=== PATIENT | female | born 1975 | race Caucasian/White ===

== ENCOUNTER 2022-06-17 16:47 | Emergency (ER) | payer OTHER, SELFPAY ==
[2022-06-17 17:13] VITALS: O2SAT 96
--- NOTE | 2022-06-17 17:24 | ERPHSYRPT ---
- History of Present Illness Time Seen by Provider: 06/17/22 16:55 Source: patient Exam Limitations: no limitations Patient Subjective Stated Complaint: C/O left earache over the past several days that is now also causing left sided jaw pain Triage Nursing Assessment: Patient ambulated back to ED. She is alert and oriented. NO SOB. Ear canal red with no drainage noted. Hearing normally. No cavities noted in left side of mouth. Physician History: 46 years old female presented in ER with chief complaint of left earache for the last 3 to 4 days with progressive worsening. Sharp shooting moderate intensity with radiating to left upper jaw. Aggravated with movements of jaw, tried [id number] medication for pain with no significant relief. Denies any discharge. No fever or chills reported. Timing/Duration: gradual onset, days (4) Severity: moderate ENT Location: ear (L) Prearrival Treatment: over the counter meds Associated Symptoms: ear pain (L), facial pain/swelling Allergies/Adverse Reactions: No Known Drug Allergies Allergy (Verified 06/17/22 16:59) Hx Tetanus, Diphtheria Vaccination/Date Given: Yes Hx Influenza Vaccination/Date Given: No Hx Pneumococcal Vaccination/Date Given: No Immunizations Up to Date: Yes Travel Risk - International Travel Have you traveled outside of the country in past 3 weeks: No - Coronavirus Screening Are you exhibiting any of the following symptoms?: No Close contact with a COVID-19 positive Pt in past 14-21 Days: No - Vaccine Status Have you recieved a Covid-19 vaccination: Yes [employer] Adf Consultant: Moderna - Vaccination Dates Date of 2cond Vaccination (if applicable): 2020 - Review of Systems Constitutional: No Symptoms Eyes: No Symptoms Ears, Nose, & Throat: Ear Pain, No Ear Discharge Respiratory: No Symptoms Cardiac: No Symptoms Genitourinary Symptoms: No Symptoms Musculoskeletal: No Symptoms Neurological: No Symptoms Endocrine: No Symptoms Hematologic/Lymphatic: No Symptoms Immunological/Allergic: No Symptoms - Past Medical History Pertinent Past Medical History: Yes Neurological History: No Pertinent History ENT History: No Pertinent History Cardiac History: No Pertinent History Respiratory History: No Pertinent History Endocrine Medical History: No Pertinent History Musculoskeletal History: No Pertinent History, Other GI Medical History: No Pertinent History History: No Pertinent History Psycho-Social History: Anxiety, Depression Female Reproductive Disorders: No Pertinent History, Other - Past Surgical History Past Surgical History: Yes Neuro Surgical History: No Pertinent History Cardiac: No Pertinent History Respiratory: No Pertinent History Gastrointestinal: No Pertinent History Genitourinary: No Pertinent History Musculoskeletal: No Pertinent History Female Surgical History: Section - Social History Smoking Status: Current every day smoker How long have you smoked: 30 Exposure to second hand smoke: Yes Drug Use: none Patient Lives Alone: No - Female History Hx Now: No - Nursing Vital Signs Nursing Vital Signs: Initial Vital Signs Temperature 97.5 F 06/17/22 17:00 Pulse Rate 116 H 06/17/22 17:00 Respiratory Rate 17 06/17/22 17:00 Blood Pressure 148/76 06/17/22 17:00 O2 Sat by Pulse Oximetry 96 06/17/22 17:00 Pain Scale Pain Intensity 8 - Physical Exam General Appearance: no apparent distress, alert Eye Exam: bilateral eye: normal inspection, PERRL, EOMI Ear Exam: right ear: TM normal, left ear: TM dull, bilateral ear: auricle normal, canal normal Nasal Exam: normal inspection Throat Exam: normal, pharynx normal, No dental tenderness Neck Exam: normal inspection, non-tender, supple, full range of motion, trachea midline, lymphadenopathy (L) Cardiovascular/Respiratory Exam: normal breath sounds, regular rate/rhythm Neurologic Exam: alert, oriented x 3, cooperative, adult education manager II-XII nml as tested Skin Exam: normal color SpO2 Interpretation: normal SpO2: 96 O2 Delivery: Room Air - Progress Progress: unchanged Progress Note: 06/17/22 17:23 Has otitis media, started on Augmentin, outpatient follow-up recommended. We wi ll also give Flonase to help with eustachian tube opening. Counseled pt/family regarding: diagnosis, need for follow-up - Departure Departure Disposition: Home Clinical Impression: Acute otitis media Condition: Stable Critical Care Time: No Referrals: [facility] [Primary Care Provider] - Follow Up with PCP/3 days Additional Instructions: Take Tylenol/ibuprofen as needed for pain. Follow-up with primary care for reevaluation. Return to ER for any worsening. Prescriptions: Ibuprofen 600 mg PO Q6HPRN PRN 10 Days #20 tablet PRN Reason: Pain Amox Tr/Potass Clav. 875 mg [Augmentin 875-125 Tablet] 875 mg PO BID #14 tablet Fluticasone Propionate [Flonase NASAL] 16 gm NS DAILY #1
[2022-06-17 17:35] VITALS: BP 132/76; PULSE 100
== END 2022-06-17 17:34 | disposition home or self-care (01) ==
LOC: ED 16:47
DX: H66.92 Otitis media, unspecified, left ear (principal); H92.02 Otalgia, left ear; Z72.0 Tobacco use
CPT/HCPCS: 99281

== ENCOUNTER 2022-06-25 17:51 | Emergency (ER) | payer OTHER ==
[2022-06-25 18:42] VITALS: BP 140/86; PULSE 98
[2022-06-25] MEDS ORDERED: Rocephin 1000 MG INJ IM ONE (18:42)
--- NOTE | 2022-06-25 18:49 | ERPHSYRPT ---
- History of Present Illness Time Seen by Provider: 06/25/22 18:44 Source: patient Exam Limitations: no limitations Patient Subjective Stated Complaint: C/O left ear pain for 2 weeks Triage Nursing Assessment: Patient showing s/s of pain; grimacing, tearful, can't sit still. Left ear is tender when lobe is moved/pulled on. Inner ear is red/inflammed. Hearing is not noted to be affected at this time. Physician History: L ear pain x 2 weeks. no help from amoxicillin. Increased pain at night when trying to sleep. Timing/Duration: gradual onset, weeks (2) Severity: severe ENT Location: ear (L) Prearrival Treatment: prescription meds Modifying Factors: Improves With: lying down Associated Symptoms: ear pain (L), change in hearing, facial pain/swelling, jaw pain, nasal congestion/drainage Allergies/Adverse Reactions: No Known Drug Allergies Allergy (Verified 06/25/22 18:34) Hx Tetanus, Diphtheria Vaccination/Date Given: Yes Hx Influenza Vaccination/Date Given: No Hx Pneumococcal Vaccination/Date Given: No Immunizations Up to Date: Yes Travel Risk - International Travel Have you traveled outside of the country in past 3 weeks: No - Coronavirus Screening Are you exhibiting any of the following symptoms?: No Close contact with a COVID-19 positive Pt in past 14-21 Days: No - Vaccine Status Have you recieved a Covid-19 vaccination: Yes Manager Payment: Moderna - Vaccination Dates Date of 2cond Vaccination (if applicable): 2020 - Review of Systems Constitutional: No Fever, No Chills Eyes: No Symptoms Ears, Nose, & Throat: Ear Pain Respiratory: No Cough, No Dyspnea Cardiac: No Chest Pain, No Edema, No Syncope Abdominal/Gastrointestinal: No Abdominal Pain, No Nausea, No Vomiting, No Diarrhea Genitourinary Symptoms: No Dysuria Musculoskeletal: No Back Pain, No Neck Pain Skin: No Rash Neurological: No Dizziness, No Focal Weakness, No Sensory Changes Psychological: No Symptoms Endocrine: No Symptoms All Other Systems: Reviewed and Negative - Past Medical History Pertinent Past Medical History: Yes Neurological History: No Pertinent History ENT History: No Pertinent History Cardiac History: No Pertinent History Respiratory History: No Pertinent History Endocrine Medical History: No Pertinent History Musculoskeletal History: No Pertinent History, Other GI Medical History: No Pertinent History History: No Pertinent History Psycho-Social History: Anxiety, Depression Female Reproductive Disorders: No Pertinent History, Other Other Medical History: Ear infections - Past Surgical History Past Surgical History: Yes Neuro Surgical History: No Pertinent History Cardiac: No Pertinent History Respiratory: No Pertinent History Gastrointestinal: No Pertinent History Genitourinary: No Pertinent History Musculoskeletal: No Pertinent History Female Surgical History: Section - Social History Smoking Status: Current every day smoker How long have you smoked: 30 Exposure to second hand smoke: Yes Drug Use: none Patient Lives Alone: No - Female History Hx Now: No - Nursing Vital Signs Nursing Vital Signs: Initial Vital Signs Pulse Rate 98 H 06/25/22 18:36 Respiratory Rate 23 06/25/22 18:36 Blood Pressure 140/86 06/25/22 18:36 Pain Scale Pain Intensity 10 - Physical Exam General Appearance: mild distress, alert Eye Exam: bilateral eye: PERRL, EOMI Ear Exam: left ear: erythema, swelling, tenderness, TM red, other (canal swollen) Nasal Exam: normal inspection Throat Exam: pharynx normal, moist mucus membranes, No tonsillar exudate Neck Exam: supple Cardiovascular/Respiratory Exam: normal breath sounds, regular rate/rhythm Abdominal Exam: non-tender, soft Neurologic Exam: alert, oriented x 3, sensation nml, No motor deficits Skin Exam: normal color, warm, dry - Course Nursing assessment & vital signs reviewed: Yes - Progress Progress: unchanged - Departure Departure Disposition: Home Clinical Impression: Left otitis externa Condition: Stable Critical Care Time: No Referrals: [facility] [Primary Care Provider] - Follow up/PCP as directed Instructions: Outer Ear Infection (DC) Prescriptions: Cefdinir 300 mg PO TID 10 Days #30 cap Dru/Baci/Poly/Hc Ear Susp [Cortisporin Ear Drops 10 ml Suspension] 3 drops OT TID 3 Days #10 ml Diclofenac Sodium 50 mg [Voltaren 50 mg] 50 mg PO TID 5 Days #15 tablet
[2022-06-25] MEDS ORDERED: XYLOCAINE 1% HCL 20 ML MDV ONE (18:56)
[2022-06-25] MEDS ORDERED: Rocephin 1000 MG INJ ONE (18:56)
== END 2022-06-25 19:10 | disposition home or self-care (01) ==
LOC: ED 17:51
DX: H60.92 Unspecified otitis externa, left ear (principal); H92.02 Otalgia, left ear; Z72.0 Tobacco use
CPT/HCPCS: 96372; 99282; J0696

== ENCOUNTER 2024-08-07 15:59 | Emergency (ER) | payer MEDICAID, OTHER ==
[2024-08-07 16:18] VITALS: RESP 18; TEMP 97.6
[2024-08-07] MEDS: Decadron 4 MG PO STA (16:57)
--- NOTE | 2024-08-07 17:04 | ERPHSYRPT ---
- History of Present Illness Time Seen by Provider: 08/07/24 16:05 Source: patient Exam Limitations: no limitations Patient Subjective Stated Complaint: pt reports a spider bit her overnight and now has severe pain and a bite on her left forearm. pt states she also lanced the wound herself today and it has some drainage. Triage Nursing Assessment: pt is aox3, cursing profusely upon exam, pt continuously interupting this nurse during exam, pt is not able to remain upright on cot, nurse not able to measure blood pressure due to pt movement, pt is afebrile, resps easy and non labored, cap refill < 3 seconds, radial pulses strong and equal, pt has apparent abscess on her left wrist/forearm, wound is red and swelling is mild, minimal drainage noted at this time. Physician History: 48 years old updated with tetanus presented in the ER with possible spider bite left forearm last night. Patient reports burning sensation around and she tried to squeeze it to take the poison out. No fever or chills reported. Reports swelling around. Small area of of eroded skin with minimal erythema around. No pus, good granulation tissue. Minimal increased temperature. Minimal tenderness around. I believe patient has allergic reaction to insect bite and she reported the skin in an effort to take out the poison. It does not seem infected. I have given a dose of oral steroid and recommended topical steroid to go home. Discussed signs symptoms of worsening needing return to ER which she seems understanding. Stable for discharge. Allergies/Adverse Reactions: No Known Drug Allergies Allergy (Verified 08/07/24 16:18) Home Medications: Pregabalin 50 mg [Lyrica 50MG] 50 mg PO TID 08/07/24 [History] Hx Tetanus, Diphtheria Vaccination/Date Given: Yes Hx Influenza Vaccination/Date Given: No Hx Pneumococcal Vaccination/Date Given: No Immunizations Up to Date: Yes Travel Risk - International Travel Have you traveled outside of the country in past 3 weeks: No - Emerging Infectious Disease Are you exhibiting symptoms associated with any current EIDs: No - Review of Systems Constitutional: No Symptoms Ears, Nose, & Throat: No Symptoms Respiratory: No Symptoms Cardiac: No Symptoms Musculoskeletal: No Symptoms Skin: Skin Lesions Neurological: No Symptoms Endocrine: No Symptoms Hematologic/Lymphatic: No Symptoms - Past Medical History Pertinent Past Medical History: Yes Neurological History: No Pertinent History ENT History: No Pertinent History Cardiac History: No Pertinent History Respiratory History: No Pertinent History Endocrine Medical History: No Pertinent History Musculoskeletal History: No Pertinent History, Other GI Medical History: No Pertinent History History: No Pertinent History Psycho-Social History: Anxiety, Depression Female Reproductive Disorders: No Pertinent History, Other Other Medical History: Ear infections - Past Surgical History Past Surgical History: Yes Neuro Surgical History: No Pertinent History Cardiac: No Pertinent History Respiratory: No Pertinent History Gastrointestinal: No Pertinent History Genitourinary: No Pertinent History Musculoskeletal: No Pertinent History Female Surgical History: Section - Female History Hx Now: No - Social History Smoking Status: Current every day smoker How long have you smoked: 30 Exposure to second hand smoke: Yes Drug Use: none Patient Lives Alone: No - Nursing Vital Signs Nursing Vital Signs: Initial Vital Signs Temperature 97.6 F 08/07/24 16:07 Pulse Rate 64 08/07/24 16:07 Respiratory Rate 18 08/07/24 16:07 O2 Sat by Pulse Oximetry 98 08/07/24 16:07 Pain Scale Pain Intensity 10 - Physical Exam General Appearance: no apparent distress, alert, anxiety Eye Exam: PERRL/EOMI Neck Exam: normal inspection, full range of motion Respiratory Exam: normal breath sounds, lungs clear Cardiovascular Exam: regular rate/rhythm, normal heart sounds Extremity Exam: inflammation, swelling, tenderness Neurologic Exam: alert, oriented x 3, cooperative, digital sales director II-XII nml as tested SpO2 Interpretation: normal SpO2: 98 O2 Delivery: Room Air Ordered Tests: Medication Summary Discontinued Medications Generic Name Dose Route Start Last Admin Trade Name Freq PRN Reason Stop Dose Admin Dexamethasone 8 mg 08/07/24 16:50 Dexamethasone 4 Mg Tablet PO 08/07/24 16:51 ONCE STA - Progress Progress Note: 08/07/24 17:09 48 years old updated with tetanus presented in the ER with possible spider bite left forearm last night. Patient reports burning sensation around and she tried to squeeze it to take the poison out. No fever or chills reported. Reports swelling around. Small area of of eroded skin with minimal erythema around. No pus, good granulation tissue. Minimal increased temperature. Minimal tenderness around. I believe patient has allergic reaction to insect bite and she reported the skin in an effort to take out the poison. It does not seem infected. I have given a dose of oral steroid and recommended topical steroid to go home. I do not think patient needs antibiotics. Discussed signs symptoms of worsening needing return to ER which she seems understanding. Stable for discharge. Counseled pt/family regarding: diagnosis, need for follow-up Medical Desision Making - Diagnostic Testing Diagnostic test were ordered, analyzed, and reviewed by me: No - Risk of complications The pt has a mod risk of morbidity or mortality based on: Need for prescription drug management - Departure Departure Disposition: Home Clinical Impression: Insect bite Condition: Stable Critical Care Time: No Referrals: SILVER RENO MD [Primary Care Provider] - Follow up with PCP 1 day Instructions: Insect Bites and Stings ED Additional Instructions: Take Tylenol/ibuprofen as needed. Follow-up with primary care for reevaluation. Return to ER for increasing pain swelling redness or if develop fever chills etc. Prescriptions: Betamethasone/Propylene Glyc [Betamethasone Dp Jun 0.05% Crm] 15 gm TP TID 7 Days #1 tu
[2024-08-07 17:18] VITALS: PULSE 68; O2SAT 99
== END 2024-08-07 17:18 | disposition home or self-care (01) ==
LOC: ED 15:59
DX: S50.862A Insect bite (nonvenomous) of left forearm, initial encounter (principal); W57.XXXA Bitten or stung by nonvenomous insect and other nonvenomous arthropods, initial encounter; Z79.899 Other long term (current) drug therapy; Z72.0 Tobacco use
CPT/HCPCS: 99281; A9270-GY

== ENCOUNTER 2024-11-27 12:44 | Emergency (ER) | payer OTHER ==
[2024-11-27 13:21] VITALS: TEMP 98
--- NOTE | 2024-11-27 13:53 | ERPHSYRPT ---
- History of Present Illness Time Seen by Provider: 11/27/24 13:30 Source: patient Exam Limitations: no limitations Patient Subjective Stated Complaint: Pt states "I have been dealing with this for a month or more. I fell and had a huge bruise on my back and it is almost g one, but now it feels like my back is locking up." Triage Nursing Assessment: Pt presented alert and oriented X 3, skin pwd. Pt ambulates iwth a hunched over gait. Pt resting comfortably on the bed but is extremely anxious. Physician History: Pt states she fell 2 months ago and was evaluated without fracture right after the fall; comes today with chronic low back pain; denies chest pain, shortness of air, fever, abdominal pain. Allergies/Adverse Reactions: No Known Drug Allergies Allergy (Verified 08/07/24 16:18) Home Medications: Pregabalin 50 mg [Lyrica 50MG] 50 mg PO TID 08/07/24 [History] Gabapentin [Neurontin] 800 mg PO DAILY 11/27/24 [History] Hx Tetanus, Diphtheria Vaccination/Date Given: Yes Hx Influenza Vaccination/Date Given: No Hx Pneumococcal Vaccination/Date Given: No Immunizations Up to Date: No Travel Risk - International Travel Have you traveled outside of the country in past 3 weeks: No - Emerging Infectious Disease Are you exhibiting symptoms associated with any current EIDs: No - Review of Systems Constitutional: No Fever Respiratory: No Dyspnea Cardiac: No Chest Pain Abdominal/Gastrointestinal: No Abdominal Pain Musculoskeletal: Back Pain - Past Medical History Pertinent Past Medical History: Yes Neurological History: No Pertinent History ENT History: No Pertinent History Cardiac History: No Pertinent History Respiratory History: No Pertinent History Endocrine Medical History: No Pertinent History Musculoskeletal History: No Pertinent History, Other GI Medical History: No Pertinent History History: No Pertinent History Psycho-Social History: Anxiety, Depression Female Reproductive Disorders: No Pertinent History, Other Other Medical History: Ear infections - Past Surgical History Past Surgical History: Yes Neuro Surgical History: No Pertinent History Cardiac: No Pertinent History Respiratory: No Pertinent History Gastrointestinal: No Pertinent History Genitourinary: No Pertinent History Musculoskeletal: No Pertinent History Female Surgical History: Section - Female History Hx Last Menstrual Period: 10/28/2024 Hx Now: No - Social History Smoking Status: Current every day smoker How long have you smoked: 30 Exposure to second hand smoke: Yes Drug Use: marijuana Patient Lives Alone: No - Social Determinants of Health Will the patient participate in the screening: Declined to provide - Nursing Vital Signs Nursing Vital Signs: Initial Vital Signs Temperature 98.0 F 11/27/24 13:07 Pulse Rate 101 H 11/27/24 13:07 Respiratory Rate 22 11/27/24 13:07 Blood Pressure 120/77 11/27/24 13:07 O2 Sat by Pulse Oximetry 98 11/27/24 13:07 Pain Scale Pain Intensity 0 - Physical Exam General Appearance: alert Eye Exam: eyes nml inspection Ears, Nose, Throat Exam: pharynx normal Neck Exam: normal inspection Respiratory Exam: lungs clear Cardiovascular Exam: normal heart sounds Gastrointestinal Exam: normal bowel sounds Back Exam: other (mild lower lumbar tenderness without bruising) Extremity Exam: No pedal edema Neurologic Exam: alert, cooperative Skin Exam: No cyanosis SpO2 Interpretation: normal SpO2: 98 O2 Delivery: Room Air - Course Nursing assessment & vital signs reviewed: Yes - Radiology Exams L-Spine X-ray Interpretation: Discussed w/ radiologist, No Fracture Ordered Tests: Active Orders 24 hr Category Date Time Status LUMBAR COMPLETE (MIN 4 VIEWS) Stat Exams 11/27/24 13:52 Completed Medication Summary Discontinued Medications Generic Name Dose Route Start Last Admin Trade Name Freq PRN Reason Stop Dose Admin Oxycodone/Acetaminophen 2 tab 11/27/24 13:52 11/27/24 14:10 Oxycodone Hcl/Apap 5 Mg/325 Mg Tablet PO 11/27/24 13:53 2 tab STAT STA Administration Oxycodone/Acetaminophen Confirm 11/27/24 14:10 Oxycodone Hcl/Apap 5 Mg/325 Mg Tablet Administered 11/27/24 14:11 Dose 2 tab .ROUTE .STK-MED ONE - Progress Progress: unchanged Counseled pt/family regarding: diagnosis, need for follow-up, rad results Medical Desision Making - Diagnostic Testing Diagnostic test were ordered, analyzed, and reviewed by me: Yes Radiological Interpretation: Discussed w/ radiologist - Departure Departure Disposition: Home Clinical Impression: Chronic back pain Condition: Stable Critical Care Time: No Referrals: SILVER RENO MD [Primary Care Provider] - Follow up/PCP as directed Instructions: Low Back Pain (DC) Additional Instructions: Follow up with private doctor tomorrow. Prescriptions: Cyclobenzaprine HCl 10 mg [Cyclobenzaprine 10 MG] 10 mg PO TID PRN #20 tablet
[2024-11-27] MEDS: PERCOCET TABLET 5/325MG PO STA ×2 (14:10→17:02)
[2024-11-27] MEDS ORDERED: PERCOCET TABLET 5/325MG ONE ×2 (14:10→16:59)
--- NOTE | 2024-11-27 14:34 | XRAY ---
Indication: Pain. Comparison: None 5 view lumbar spine demonstrates 5 lumbar segments with minimal dextroscoliosis centered at L3 and minimal/mild multilevel thoracolumbar degenerative spondylosis greatest at L3-L4 level. No other bony, articular, or soft tissue abnormalities.
[2024-11-27 15:04] VITALS: RESP 18
[2024-11-27 15:56] VITALS: O2SAT 98
[2024-11-27 17:01] VITALS: BP 112/75; PULSE 100
== END 2024-11-27 17:17 | disposition home or self-care (01) ==
LOC: ED 12:44
DX: G89.29 Other chronic pain (principal); M54.50 Low back pain, unspecified; Z79.899 Other long term (current) drug therapy; Z72.0 Tobacco use
CPT/HCPCS: 72110; 99283; A9270-GY

== ENCOUNTER 2025-07-15 23:41 | Emergency (ER) | payer OTHER ==
[2025-07-15 23:58] VITALS: RESP 19; TEMP 96.8; O2SAT 99
[2025-07-16] MEDS ORDERED: ULTRAM 50 MG ONE (00:13)
[2025-07-16] MEDS ORDERED: Cyclobenzaprine 10 MG ONE (00:13)
[2025-07-16] MEDS: ULTRAM 50 MG PO ONE (00:14)
[2025-07-16] MEDS: Cyclobenzaprine 10 MG PO ONE (00:14)
[2025-07-16 00:15] LABS: Glucose, Urine Negative (Negative); Protein,Urine Dip Negative (Negative); RBC 0-2 /HPF (0-5); WBC 21-50 /HPF (0-5)
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
[2025-07-16 00:36] VITALS: BP 127/87; PULSE 101
== END 2025-07-16 00:40 | disposition home or self-care (01) ==
LOC: ED 23:41
DX: M54.50 Low back pain, unspecified (principal); Z79.891 Long term (current) use of opiate analgesic; Z79.899 Other long term (current) drug therapy; Z72.0 Tobacco use